=== PATIENT | female | born 1950 | race Caucasian/White ===

== ENCOUNTER → 2017-02-13 | Outpatient (CLI) | payer OTHER | END | disposition home or self-care (01) | LOC: CFH 07:13 | PROVIDERS: ATTEND Family Medicine | DX: E04.1 Nontoxic single thyroid nodule (principal); R94.6 Abnormal results of thyroid function studies | CPT/HCPCS: 76536 ==

== ENCOUNTER → 2017-03-12 | Outpatient (CLI) | payer OTHER ==
[~2017-03-12] MED LIST: CALCIUM PO; CETI10CA PO; CHOL20002 PO; CHONDROITIN PO; CRAN500C PO; CYAN1TAB29 PO; DICL75TA2 PO; FLUT9.9S NAS; GLUC1500 PO; LACT1CAP40 PO; MESA1000 RC; MULT-6 PO; NARA2.5T PO; OMEG1CAP12 PO; OMEP-110 PO; VALA500T PO
== END | disposition home or self-care (01) ==
LOC: STAR 11:01
PROVIDERS: ATTEND Surgery
DX: Z01.818 Encounter for other preprocedural examination (principal)
CPT/HCPCS: 93005

== ENCOUNTER 2017-03-26 06:33 | Observation (INO) | payer OTHER ==
[2017-03-12 11:42] VITALS: BP 94/68
[~2017-03-26] VITALS: Ht 162.6 cm; Wt 75.0 kg
[~2017-03-26 06:33] MED LIST changes: -OMEG1CAP12 PO; +OMEG1CAP23 PO
[2017-03-26] MEDS ORDERED: LACTATED RINGERS 1,000 ML IV SCH (07:49)
[2017-03-26] MEDS ORDERED: LIDOCAINE 1%, 2ML SQ PRN (08:00)
[2017-03-26] MEDS ORDERED: MIDAZOLAM 1 MG/ML, 2ML ONE (08:10)
[2017-03-26] MEDS ORDERED: FENTANYL PF 250 MCG/5ML ONE (08:10)
[2017-03-26] MEDS ORDERED: BUPIVACAINE/PF 0.5% ONE (08:33)
[2017-03-26] MEDS ORDERED: ONDANSETRON 2MG/ML, 2ML ONE (08:36)
[2017-03-26] MEDS ORDERED: PROPOFOL 10 MG/ML, 20ML ONE (08:36)
[2017-03-26] MEDS ORDERED: SUCCINYLCHOLINE 20 MG/ML, 10ML ONE (08:36)
[2017-03-26] MEDS ORDERED: KETOROLAC 30 MG/1 ML ONE (08:36)
[2017-03-26] MEDS ORDERED: DEXAMETHASONE 4 MG/ML, 1ML ONE (08:36)
[2017-03-26] MEDS ORDERED: hydrALAzine 20 MG/ML, 1ML IV PRN ×2 (09:30→12:00)
[2017-03-26] MEDS ORDERED: HYDROmorphone 1 MG/ML, 1ML IV PRN (09:30)
[2017-03-26] MEDS ORDERED: PROMETHAZINE 25 MG/ML, 1ML IV PRN (09:30)
[2017-03-26] MEDS ORDERED: MIDAZOLAM 1 MG/ML, 2ML IV PRN (09:30)
[2017-03-26] MEDS ORDERED: ALBUTEROL/IPRATROPIUM 2.5MG/0.5MG, 3 ML NPPB PRN (09:30)
[2017-03-26] MEDS ORDERED: OXYcodone 5 MG/5 ML ORAL.SOL UDC PO PRN (09:30)
[2017-03-26] MEDS ORDERED: ONDANSETRON 2MG/ML, 2ML IVPush PRN (09:30)
[2017-03-26] MEDS ORDERED: SUMATRIPTAN 25 MG TABLET PO PRN (09:30)
[2017-03-26] MEDS ORDERED: MEPERIDINE/PF 25MG/0.5ML IVPush PRN (09:30)
[2017-03-26] MEDS ORDERED: LABETALOL 5MG/ML, 20ML IV PRN (09:30)
[2017-03-26] MEDS ORDERED: ACETAMINOPHEN 325 MG TABLET PO PRN ×2 (09:30→12:00)
[2017-03-26] MEDS ORDERED: OXYcodone 5 MG/5 ML ORAL.SOL UDC ONE (10:50)
[2017-03-26] MEDS ORDERED: FENTANYL PF 100 MCG/2ML ONE (10:50)
[2017-03-26] MEDS ORDERED: ACETAMINOPHEN 650 MG/20.3 ML UDC ONE (10:50)
[2017-03-26] MEDS ORDERED: ACETAMINOPHEN 325 MG/10.15 ML UDC ONE (10:51)
[2017-03-26] MEDS: FENTANYL PF 100 MCG/2ML IV PRN ×2 (10:53→11:09)
[2017-03-26 11:30] VITALS: BP 119/75
[2017-03-26] MEDS ORDERED: HYDROcodone/APAP 5/325 TABLET PO PRN (12:00)
[2017-03-26] MEDS ORDERED: CETIRIZINE 10 MG TABLET PO PRN (12:00)
[2017-03-26] MEDS ORDERED: FLUTICASONE NASAL SPRAY 16GM NAS PRN (12:00)
[2017-03-26] MEDS ORDERED: ACETAMINOPHEN 650 MG SUPP PR PRN (12:00)
[2017-03-26 14:00] VITALS: BP 99/68
[2017-03-26] MEDS: POTASSIUM CHLORIDE 20 MEQ in D5%-0.45% NACL 1,000 ML IV SCH ×2 (14:56→21:50)
[2017-03-26] MEDS: OXYcodone/APAP 5/325MG TABLET PO PRN ×2 (16:51→17:49)
[2017-03-26] MEDS: CALCIUM/VITAMIN D3 250-125 TABLET PO SCH ×2 (17:02→21:50)
[2017-03-26 20:42] VITALS: BP 100/56
[2017-03-27 00:28] VITALS: BP 94/55
[2017-03-27] MEDS: OXYcodone/APAP 5/325MG TABLET PO PRN ×2 (04:23→10:24)
[2017-03-27] MEDS: POTASSIUM CHLORIDE 20 MEQ in D5%-0.45% NACL 1,000 ML IV SCH (04:23)
[2017-03-27 04:37] VITALS: BP 104/61
[2017-03-27] MEDS ORDERED: OMEPRAZOLE 20 MG CAPSULE.DR PO SCH (07:30)
[2017-03-27] MEDS: CALCIUM/VITAMIN D3 250-125 TABLET PO SCH (08:08)
[2017-03-27 08:12] VITALS: BP 105/70
[2017-03-27] MEDS ORDERED: VALACYCLOVIR 500MG TABLET PO SCH (09:00)
[2017-03-27] MEDS ORDERED: DICLOFENAC SODIUM 75 MG TABLET.DR PO SCH (09:00)
[2017-03-27] MEDS ORDERED: OMEGA-3/FISH OIL CAPSULE PO SCH (09:00)
[2017-03-27] MEDS ORDERED: MULTIVITAMIN 1 TABLET PO SCH (09:00)
[2017-03-27] MEDS ORDERED: LACTOBACILLUS CHEW TABLET PO SCH (09:00)
[2017-03-27] MEDS ORDERED: CHOLECALCIFEROL 1,000 UNIT TABLET PO SCH (09:00)
[2017-03-27 11:00] VITALS: BP 103/71
[2017-03-27] MEDS ORDERED: HYDR-3240 PO (11:35)
[2017-03-27] MEDS ORDERED: LEVO100T PO (11:36)
[2017-03-27] MEDS ORDERED: CALC-118 PO (11:36)
== END 2017-03-27 11:50 | disposition home or self-care (01) ==
LOC: OUT 06:33 → 4NOR 11:30 → OUT 11:43 → 4NOR 11:44 → DCLOUNGE 03-27 11:30
PROVIDERS: ADMIT Surgery; ATTEND Surgery
DX: E05.20 Thyrotoxicosis with toxic multinodular goiter without thyrotoxic crisis or storm (principal)
CPT/HCPCS: 36415; 60240; 82310; 83970; 88307; 95865; C1760; G0378; J0330; J1100; J1885; J2250; J2405; J2704; J3010; J3480; J3490; J7120

== ENCOUNTER → 2017-06-26 | Outpatient (CLI) | payer OTHER ==
[~2017-06-26] MED LIST changes: +CALC-118 PO; +HYDR-3240 PO; +LEVO100T PO; -MESA1000 RC; +MESA10003 RC
== END | disposition home or self-care (01) ==
LOC: CFH 07:06
PROVIDERS: ATTEND Family Medicine
DX: Z12.31 Encounter for screening mammogram for malignant neoplasm of breast (principal)
CPT/HCPCS: G0202

== ENCOUNTER → 2018-12-04 | Outpatient (CLI) | payer OTHER ==
[~2018-12-04] MED LIST changes: -CHOL20002 PO; +CHOL200052 PO; +CIPR500T3 PO; -DICL75TA2 PO; +DICL75TA3 PO; -GLUC1500 PO; +GLUC15006 PO; +LEVO100T5 PO; +LEVOTHYROXINE PO; +OXYC5TAB3 PO; +PANT20TA3 PO
== END | disposition home or self-care (01) ==
LOC: CFH 06:59
PROVIDERS: ATTEND Family Medicine
DX: Z12.31 Encounter for screening mammogram for malignant neoplasm of breast (principal)
CPT/HCPCS: 77063; 77067

== ENCOUNTER → 2020-03-10 | Outpatient (CLI) | payer MEDICARE ==
[~2020-03-10] MED LIST changes: -VALA500T PO; +VALA500T8 PO
== END | disposition home or self-care (01) ==
LOC: CFH 09:02
PROVIDERS: ATTEND Family Medicine
DX: Z12.31 Encounter for screening mammogram for malignant neoplasm of breast (principal); N63.41 Unspecified lump in right breast, subareolar
CPT/HCPCS: 76642; 77066; G0279